=== PATIENT | female | born 1935 | race African-American/Black ===

== ENCOUNTER 2018-12-31 10:49 | Emergency (ER) | payer OTHER ==
[~2018-12-31] VITALS: Ht 165.1 cm; Wt 70.3 kg
[2018-12-31 11:28] LABS: URINE BILIRUBIN NEGATIVE (Negative); URINE BLOOD NEGATIVE (Negative); URINE CLARITY CLEAR; URINE COLOR YELLOW; URINE GLUCOSE-RANDOM* NEGATIVE (Negative); URINE KETONES NEGATIVE (Negative); URINE NITRITE-REFLEX NEGATIVE (Negative); URINE PROTEIN (DIPSTICK) NEGATIVE (Negative)
[2018-12-31 11:30] LABS: URINE LEUKOCYTES-REFLEX 1+ (Negative)
[2018-12-31 11:33] LABS: BACTERIA-REFLEX None Seen /HPF (None Seen); CASTS None Seen /LPF (None Seen); CRYSTALS None Seen /LPF (None Seen); HYALINE CASTS 0-3 Few /LPF (None Seen); SQUAMOUS >10 Many /LPF (0-3); URINE WBC-REFLEX 0-5 Rare /HPF (0-5)
[2018-12-31 11:34] LABS: URINE RBC None Seen /HPF (0-2)
[2018-12-31 13:23] VITALS: BP 149/74
== END 2018-12-31 11:15 | disposition home or self-care (01) ==
LOC: ER 10:49
PROVIDERS: Student in an Organized Health Care Education/Training Program
DX: R73.09 Other abnormal glucose (principal)